=== PATIENT | male | born 1960 | race Caucasian/White ===

== ENCOUNTER 2018-07-14 13:13 | Outpatient (CLI) | payer OTHER, SELFPAY ==
[2018-07-14 14:44] LABS: Uric Acid 4.9 mg/dL (3.5-7.2)
== END 2018-07-14 13:33 ==
PROVIDERS: PCP Internal Medicine; Visit Provider Internal Medicine
DX: M10.9 Gout, unspecified (principal)
CPT/HCPCS: 84550

== ENCOUNTER 2018-08-12 14:26 | Outpatient (CLI) | payer OTHER, SELFPAY ==
[2018-08-12 15:00] LABS: Abs Immature Grans 0.01 k/cumm (0.0-0.09); Absolute Basophil Count 0.03 k/cumm (0.0-0.2); Absolute Eosinophil Count 0.01 k/cumm (0.0-0.7); Absolute Lymphocyte Count 1.44 k/cumm (1.2-3.4); Absolute Monocyte Count 0.94 k/cumm (0.11-0.7); Absolute Neutrophil Count 5.76 k/cumm (1.2-6.7); Basophils % 0.4; Eosinophils % 0.1; HCT 41.9 % (40.0-50.0); HGB 14.4 g/dL (13.5-17.5); Immature Grans % 0.1; Lymphocytes % 17.6; Mean Corp. HGB Concentration 34.4 g/dL (32.0-36.0); Mean Corpuscular Hemoglobin 35.1 pg (27.0-33.0); Mean Corpuscular Volume 102.2 fL (80-95); Mean Platelet Volume 9.7 fL (8.0-11.0); Monocytes % 11.5; Neutrophils % 70.3; Platelet Count 228 x1000/uL (130-400); RBC Distribution Width 13.3 % (11.8-14.1); White Blood Cell Count 8.19 k/cumm (4.4-10.8)
[2018-08-12 16:24] LABS: BUN 13 mg/dL (7-18); CREATININE 1.12 mg/dL (0.70-1.30); Calcium 9.8 mg/dL (8.5-10.1); Chloride 96 mmol/L (98-107); Cholesterol 256 mg/dL (50-200); Glucose 108 mg/dL (70-100); HDL Cholesterol 102 mg/dL (40-60); LDL CHOLESTEROL 132 mg/dL (<100); Potassium 4.5 mmol/L (3.5-5.1); Sodium 137 mmol/L (136-145); Triglyceride 73 mg/dL (30-150)
== END 2018-08-12 14:46 ==
PROVIDERS: PCP Internal Medicine; Visit Provider Internal Medicine
DX: I10 Essential (primary) hypertension (principal); M10.9 Gout, unspecified
CPT/HCPCS: 80048; 80061; 83721; 85025

== ENCOUNTER 2018-10-26 14:27 | Outpatient (CLI) | payer OTHER, SELFPAY ==
[2018-10-26 14:52] LABS: Abs Immature Grans 0.01 k/cumm (0.0-0.09); Absolute Basophil Count 0.04 k/cumm (0.0-0.2); Absolute Eosinophil Count 0.43 k/cumm (0.0-0.7); Absolute Lymphocyte Count 1.45 k/cumm (1.2-3.4); Absolute Monocyte Count 0.94 k/cumm (0.11-0.7); Absolute Neutrophil Count 4.35 k/cumm (1.2-6.7); Basophils % 0.6; HGB 14.6 g/dL (13.5-17.5); Immature Grans % 0.1; Lymphocytes % 20.1; Mean Corp. HGB Concentration 35.6 g/dL (32.0-36.0); Mean Corpuscular Hemoglobin 35.3 pg (27.0-33.0); Mean Platelet Volume 10.4 fL (8.0-11.0); Neutrophils % 60.2; Platelet Count 249 x1000/uL (130-400); RBC 4.14 m/cumm (4.50-6.00); RBC Distribution Width 12.6 % (11.8-14.1); White Blood Cell Count 7.22 k/cumm (4.4-10.8)
== END 2018-10-26 14:47 ==
PROVIDERS: PCP Internal Medicine; Visit Provider Internal Medicine Rheumatology
DX: M10.9 Gout, unspecified (principal)
CPT/HCPCS: 36415; 85025

== ENCOUNTER 2019-12-03 02:30 | Outpatient (CLI) | payer OTHER, SELFPAY ==
[2019-12-03 16:01] LABS: ALT 36 U/L (16-63); AST 49 U/L (15-37); Albumin 3.6 g/dL (3.4-5.0); Alkaline Phosphatase 81 U/L (46-116); Anion Gap 10.3 mmol/L (3-11); BUN 5 mg/dL (7-18); Bilirubin, Total 1.1 mg/dL (0.2-1.0); CO2 27.7 mmol/L (21.0-32.0); CREATININE 0.92 mg/dL (0.70-1.30); Calcium 9.5 mg/dL (8.5-10.1); Calculated LDL 75 mg/dL (<100); Chloride 102 mmol/L (98-107); Cholesterol 176 mg/dL (<200); Glucose 102 mg/dL (74-106); HDL Cholesterol 81 mg/dL (40-60); Potassium 4.2 mmol/L (3.5-5.1); Sodium 140 mmol/L (136-145); Total Protein 6.7 g/dL (6.4-8.2); Triglyceride 100 mg/dL (<150)
[2019-12-03 16:10] LABS: Uric Acid 4.2 mg/dL (3.5-7.2)
== END 2019-12-03 02:50 ==
PROVIDERS: PCP Internal Medicine; Visit Provider Internal Medicine
DX: E78.00 Pure hypercholesterolemia, unspecified (principal); K76.0 Fatty (change of) liver, not elsewhere classified; M1A.9XX0 Chronic gout, unspecified, without tophus (tophi); R73.01 Impaired fasting glucose; I10 Essential (primary) hypertension
CPT/HCPCS: 36415; 80053; 80061; 84550; 85025

== ENCOUNTER 2020-07-10 04:23 | Outpatient (CLI) | payer OTHER, SELFPAY ==
[2020-07-10 11:36] LABS: Abs Immature Grans 0.04 10^3/uL (0.0-0.06); Absolute Basophil Count 0.06 10^3/uL (0.0-0.2); Absolute Eosinophil Count 0.02 10^3/uL (0.0-0.7); Absolute Lymphocyte Count 1.33 10^3/uL (1.2-3.4); Absolute Monocyte Count 0.51 10^3/uL (0.1-0.8); Absolute Neutrophil Count 6.42 10^3/uL (1.2-6.7); Basophils % 0.7; Eosinophils % 0.2; HCT 44.3 % (40.0-50.0); HGB 15.6 g/dL (13.5-17.5); Immature Grans % 0.5; Lymphocytes % 15.9; MCH 39.9 pg (27.0-33.0); MCHC 35.2 % (32.0-36.0); MCV 113.3 fL (80-95); MPV 10.2 fL (8.0-11.0); Monocytes % 6.1; Neutrophils % 76.6; Nucleated RBC 0 %; Platelet Count 297 10^3/uL (130-400); RBC 3.91 10^6/uL (4.36-5.78); RDW 13.2 % (11.8-14.1); RDW-SD 55.2 fL; WBC 8.38 10^3/uL (4.4-10.8)
[2020-07-10 11:53] LABS: ALT 53 U/L (16-63); AST 87 U/L (15-37); CREATININE 0.8 mg/dL (0.70-1.30); Uric Acid 3.8 mg/dL (3.5-7.2)
[2020-07-10 12:12] LABS: Diff Comment RBC Morph Reviewed; Macrocytosis 2+
== END 2020-07-10 04:24 | disposition home or self-care (01) ==
LOC: LBO 04:24
PROVIDERS: PCP Internal Medicine; Visit Provider Internal Medicine Rheumatology
DX: M10.9 Gout, unspecified (principal)
CPT/HCPCS: 36415; 82565; 84450; 84460; 84550; 85025

== ENCOUNTER 2021-05-15 16:51 | Outpatient (REF) | payer OTHER, SELFPAY ==
[2021-05-17 13:20] LABS: COVID-19 RT-PCR UVMMC Result Negative (Negative)
== END 2021-05-15 16:52 | disposition home or self-care (01) ==
LOC: LBN 16:51
PROVIDERS: PCP Internal Medicine; Visit Provider Internal Medicine
DX: Z20.822 Contact with and (suspected) exposure to COVID-19 (principal); R05.8 Other specified cough; R50.9 Fever, unspecified
CPT/HCPCS: U0003

== ENCOUNTER 2021-08-22 03:09 | Outpatient (CLI) | payer OTHER, SELFPAY ==
[2021-08-22 09:14] LABS: HCT 42.8 % (40.0-50.0); HGB 14.9 g/dL (13.5-17.5); MCH 37.7 pg (27.0-33.0); MCHC 34.8 % (32.0-36.0); MCV 108.4 fL (80-95); MPV 10.9 fL (8.0-11.0); Platelet Count 167 10^3/uL (130-400); RBC 3.95 10^6/uL (4.36-5.78); RDW 13.5 % (11.8-14.1); RDW-SD 53.9 fL; WBC 6.42 10^3/uL (4.4-10.8)
[2021-08-22 09:38] LABS: ESR < 1 mm/hr (0-20)
[2021-08-22 09:58] LABS: ALT 56 U/L (16-63)
[2021-08-22 10:37] LABS: ALT 54 U/L (16-63); AST 127 U/L (15-37); Albumin 2.8 g/dL (3.4-5.0); Alkaline Phosphatase 141 U/L (46-116); BUN 6 mg/dL (7-18); Bilirubin, Total 1.5 mg/dL (0.2-1.0); CREATININE 0.7 mg/dL (0.70-1.30); Calcium 8.7 mg/dL (8.5-10.1); Calculated LDL 60 mg/dL (<100); Chloride 104 mmol/L (98-107); Cholesterol 159 mg/dL (<200); Glucose 86 mg/dL (74-106); HDL Cholesterol 83 mg/dL (40-60); Potassium 3.9 mmol/L (3.5-5.1); Sodium 144 mmol/L (136-145); TSH 1.28 uIU/mL (0.36-3.74); Triglyceride 81 mg/dL (<150); Vitamin B12 451 pg/mL (193-986)
== END 2021-08-22 03:10 | disposition home or self-care (01) ==
LOC: LBO 03:09
PROVIDERS: Internal Medicine Rheumatology; PCP Internal Medicine; Visit Provider Internal Medicine
DX: R74.01 Elevation of levels of liver transaminase levels (principal)
CPT/HCPCS: 36415; 80053; 80061; 85027; 85652; 82607; 84443; 84460

== ENCOUNTER → 2021-10-04 02:26 | Outpatient (CLI) | payer OTHER, SELFPAY ==
--- NOTE | 2021-10-04 12:14 | DI.RAD_ITS ---
Exam(s) XR FOOT LT COMPLETE EXAM: XR FOOT LT COMPLETE CLINICAL HISTORY: swelling, M79.89. TECHNIQUE: 2D digital imaging was performed of the left foot. Three images were obtained. AP, obli que and lateral views were obtained. COMPARISON: CR LEFT ANKLE COMPLETE from 11/13/2017 FINDINGS: BONES: No acute fracture is present. No bony destructive lesion is seen. JOINTS: No dislocation present. Mild hallux valgus deformity. There are mild degenerative changes of the foot particularly at the talonavicular joint. SOFT TISSUE: Dystrophic calcifications are seen in the soft tissues adjacent to the distal phalanx of the great toe. IMPRESSION: Mild degenerative changes of the left foot. No acute abnormality. DATA REPOSITORY: RADIATION DOSE DELIVERED:
--- NOTE | 2021-10-04 12:14 | DI.RAD_ITS ---
Exam(s) XR ANKLE LT COMPLETE EXAM: XR ANKLE LT COMPLETE CLINICAL HISTORY: foot and ankle swelling, M79.89 TECHNIQUE: 2D digital imaging was performed of the left ankle. Three images were obtained. AP, lat eral and oblique views were obtained. COMPARISON: CR LEFT ANKLE COMPLETE from 11/13/2017 FINDINGS: BONES: No acute fracture is present. No bony destructive lesion is seen. JOINTS:The ankle mortise is normally aligned. SOFT TISSUE: There is mild soft tissue swelling around the ankle. IMPRESSION: Mild soft tissue swelling around the ankle. DATA REPOSITORY: RADIATION DOSE DELIVERED:
== END ==
PROVIDERS: PCP Internal Medicine; Visit Provider Internal Medicine
DX: M25.572 Pain in left ankle and joints of left foot; M79.672 Pain in left foot; M79.89 Other specified soft tissue disorders; M20.12 Hallux valgus (acquired), left foot; M19.072 Primary osteoarthritis, left ankle and foot
CPT/HCPCS: 73610; 73630

== ENCOUNTER 2022-02-20 20:52 | Outpatient (REF) | payer OTHER, SELFPAY ==
[2022-02-20 21:13] LABS: Abs Immature Grans 0.03 10^3/uL (0.0-0.06); Absolute Basophil Count 0.06 10^3/uL (0.0-0.2); Absolute Eosinophil Count 0.04 10^3/uL (0.0-0.7); Absolute Lymphocyte Count 1.69 10^3/uL (1.2-3.4); Absolute Monocyte Count 1.17 10^3/uL (0.1-0.8); Absolute Neutrophil Count 5.67 10^3/uL (1.2-6.7); Basophils % 0.7; Eosinophils % 0.5; HCT 48.2 % (40.0-50.0); HGB 16.6 g/dL (13.5-17.5); Immature Grans % 0.3; Lymphocytes % 19.5; MCH 34.7 pg (27.0-33.0); MCHC 34.4 % (32.0-36.0); MCV 101 fL (80-95); MPV 11.5 fL (8.0-11.0); Monocytes % 13.5; Neutrophils % 65.5; Platelet Count 246 10^3/uL (130-400); RBC 4.79 10^6/uL (4.36-5.78); RDW 12.7 % (11.8-14.1); RDW-SD 47.8 fL; WBC 8.66 10^3/uL (4.4-10.8)
[2022-02-20 21:22] LABS: ALT 22 U/L (16-63); AST 53 U/L (15-37); Albumin 2.6 g/dL (3.4-5.0); Alkaline Phosphatase 158 U/L (46-116); Anion Gap 5.6 mmol/L (3-11); BUN 5 mg/dL (7-18); Bilirubin, Direct 0.7 mg/dL (0.0-0.2); Bilirubin, Total 2.1 mg/dL (0.2-1.0); CO2 32.4 mmol/L (21.0-32.0); CREATININE 0.9 mg/dL (0.70-1.30); Calcium 9.1 mg/dL (8.5-10.1); Chloride 95 mmol/L (98-107); Estimated GFR 97.17 (mL/min/1.73m2); Glucose 102 mg/dL (74-106); Potassium 3.8 mmol/L (3.5-5.1); Sodium 133 mmol/L (136-145); Total Protein 7.1 g/dL (6.4-8.2)
[2022-02-22 10:03] LABS: HBs Antibody, Qual Negative (See Note); HBs Antibody, Quant <3.1 mIU/mL (See Note); Hepatitis B Core Antibody Negative (Negative); Hepatitis B surface Ag Negative (Negative); Hepatitis C Ab w Rflx HCV PCR Negative (Negative)
== END 2022-02-20 20:53 | disposition home or self-care (01) ==
LOC: LBN 20:52
PROVIDERS: PCP Internal Medicine; Visit Provider Nurse Practitioner
DX: R18.8 Other ascites (principal); F10.10 Alcohol abuse, uncomplicated; R74.01 Elevation of levels of liver transaminase levels; R60.0 Localized edema; R79.89 Other specified abnormal findings of blood chemistry
CPT/HCPCS: 80053; 80076; 86704; 86706; 86803; 87340; 85025

== ENCOUNTER 2022-02-26 06:15 | Day surgery (SDC) | payer OTHER, SELFPAY ==
[2022-02-26 06:29] VITALS: BP 119/90; PULSE 86; RESP 17; TEMP 36.4; O2SAT 97
--- NOTE | 2022-02-26 06:50 | ANES.PREOP_ITS ---
General Info Date of Service Date Performed: 02/26/22 Height: 6 ft 0.25 in Weight: 82.3 kg Body Mass Index (BMI): 24.4 Surgical Procedure: Operation Date: 02/26/22 07:40 Proposed Procedure Side Surgeon p Wrist ECTR Right Herb Rosales MD Meds Allergies and Home Medications Allergies Allergy/AdvReac Type Severity Reaction Status Date / Time oxycodone HCl [From Roxicet] AdvReac waking Verified 02/26/22 06:40 dreams, nervousness Home Medication Medication Instructions Recorded prednisone 5 mg tablet 5 mg PO DAILY PRN 01/09/21 Current Visit Medications: Current Medications Generic Name Dose Route Start Last Admin Trade Name Freq PRN Reason Stop Dose Admin Ringer's Solution 1,000 mls @ 80 mls/hr 02/26/22 06:00 IV 03/27/22 23:59 INFUSION MARISELA Cefazolin Sodium/Dextrose 2 gm in 50 mls @ 100 mls/hr 02/26/22 06:00 Ancef Duplex IVPB 02/26/22 16:00 PREOP MARISELA IV Miscellaneous Supplies 1 each 02/26/22 06:00 Iv Access IV 03/27/22 23:59 DIRECTED MARISELA Sodium Chloride 0 ml 02/26/22 06:00 Normal Saline Flush 10 Ml Syr IV 03/27/22 23:59 PRN PRN Sodium Chloride 0 ml 02/26/22 06:00 Normal Saline 10 Ml Vial IJ 03/27/22 23:59 DIRECTED PRN Sterile Water 0 ml 02/26/22 06:00 Water,Injection,Sterile 10 Ml Vial IJ 03/27/22 23:59 DIRECTED PRN PFSH Active Problems Active Problems: Problem Status Onset Code Bilateral knee pain. 10/02/12 Gouty arthropathy 10/02/12 M10.00 Right hydrocele N43.3 Alcohol consumption heavy 05/03/14 Z78.9 Biliary colic 10/09/14 K80.50 Glaucoma suspect 05/03/14 H40.009 Inguinal hernia 05/03/14 K40.90 Seroma of genitourinary system after genitourinary system procedure 02/25/17 N99.842 Tinnitus of right ear 11/07/16 H93.11 Tubular adenoma of colon 05/03/14 D12.6 Umbilical hernia without obstruction or gangrene 05/03/14 K42.9 Impaired fasting glucose R73.01 Fatty liver K76.0 Macrocytosis without anemia D75.89 Chronic gout [id number] Trigeminal neuralgia of right side of face G50.0 Hypercholesterolemia E78.00 Ganglion, right wrist M67.431 Paresthesia of both feet R20.2 Peripheral neuropathy G62.9 Carpal tunnel syndrome on both sides G56.03 Ulnar neuropathy of left upper extremity G56.22 Normal blood pressure Alcoholic hepatitis without ascites ~08/2021 K70.10 Venous incompetence I87.2 Ascites R18.8 Elevated liver function tests R79.89 Medical History Medical History Essential hypertension (02/05/17) HTN (hypertension) ingrown toenail kidney infection Medical History Comments:: Per pt. states he quite drinking alcohol last week. Pt states he was told the old meds used for colonoscopy made him babble for 3 hours post op when he got home before he realized he was awake. Surgical History Surgical History Arthroplasty of knee (10/03/12) Laurie No replacement just knee scop Colonoscopy - MAC (10/31/17) Excision, Lesion (11/22/16) Extraction of cataract (02/10/16) Hydrocelectomy (02/13/17) Tobacco Smoking/Tobacco Use Status: Former Tobacco Use Alcohol Alcohol Intake: former Substance Use Substance use: Never Vital Signs and Lab Results Vital Signs Most Recent Vital Signs in EMR: Most Recent Vital Signs Temp Pulse Resp BP Pulse Ox 36.4 C L 86 17 119/90 97 02/26/22 06:29 02/26/22 06:29 02/26/22 06:29 02/26/22 06:29 02/26/22 06:29 Lab Results Blood Type / Crossmatch: No Data to Display Complete Blood Count: White Blood Count 8.66 10^3/uL (4.4-10.8) 02/20/22 15:45 Red Blood Count 4.79 10^6/uL (4.36-5.78) 02/20/22 15:45 Hemoglobin 16.6 g/dL (13.5-17.5) 02/20/22 15:45 Hematocrit 48.2 % (40.0-50.0) 02/20/22 15:45 Platelet Count 246 10^3/uL (130-400) 02/20/22 15:45 Complete Metabolic Panel: Sodium 133 mmol/L (136-145) L 02/20/22 15:45 Potassium 3.8 mmol/L (3.5-5.1) 02/20/22 15:45 Chloride 95 mmol/L (98-107) L 02/20/22 15:45 Carbon Dioxide 32.4 mmol/L (21.0-32.0) H 02/20/22 15:45 BUN 5 mg/dL (7-18) L 02/20/22 15:45 Creatinine 0.9 mg/dL (0.70-1.30) 02/20/22 15:45 Est GFR (CKD-EPI 2020) 97.17 (mL/min/1.73m2) 02/20/22 15:45 Calcium 9.1 mg/dL (8.5-10.1) 02/20/22 15:45 Albumin 2.6 g/dL (3.4-5.0) L 02/20/22 15:45 Glucose 102 mg/dL (74-106) 02/20/22 15:45 Liver Function Panel: Alanine Aminotransferase (ALT/SGPT) 22 U/L (16-63) 02/20/22 15: 45 Aspartate Amino Transf (AST/SGOT) 53 U/L (15-37) H 02/20/22 15: 45 Coagulation Panel: No Data to Display Cardiac Panel: No Data to Display Arterial Blood Gas: No Data to Display Venous Blood Gas: No Data to Display Pancreas Panel: No Data to Display Thyroid Panel: No Data to Display Infectious Disease: Hepatitis B Surface Antigen Negative (Negative) 02/20/22 15:45 Hepatitis C Antibody Negative (Negative) 02/20/22 15:45 Blood Cultures: No Data to Display Toxicology Panel: No Data to Display Anesthesia Assessment and Plan Anesthesia History Personal History: No History of Anesthesia Complications Family History: No Family History of Anesthesia Complications Exercise Tolerance Exercise Tolerance: Metabolic Equivalents>4 Pertinent Negatives Pertinent Negatives: No Symptoms of GERD, No Major Cardiovascular Symptoms or Complaints, No Major Pulmonary Symptoms or Complaints and No History of CVA/TIA Cardiac & Pulmonary Exam Cardiac Exam: Normal S1/S2 Heart Sounds Pulmonary Exam: Clear Bilateral Breath Sounds Implantable Cardiac Device Does patient have a Pacemaker or an ICD?: No Airway Exam Known Difficult Airway: No Mallampati Class: 2 Mouth Opening: Normal (> 3cm) Thyromental Distance: Greater than 3 cm Neck Range of Motion: Full ROM Neck Circumference: Normal Teeth Condition: Loose or Chipped (x2 left upper chipped/broken teeth) ASA Classification ASA Score: ASA 3 Emergency Case?: No NPO Status NPO Status: NPO Clears >2 hours, Solids >8 hours Anesthesia Plan Resuscitation Status: Full Code Anesthesia Technique: General Anesthesia Airway Planned: Natural Airway Monitors Used: Standard Monitors
[2022-02-26] MEDS: Lactated Ringers 1,000 ML 80 ML IV (07:01)
[2022-02-26 07:12] VITALS: BMI 24.4
--- NOTE | 2022-02-26 07:14 | HPE_ITS ---
Assessment and Plan Assessment and plan (1) Carpal tunnel syndrome on both sides: Status: Acute Assessment and plan: Genrao is a 61-year-old has bilateral carpal tunnel syndrome. He is here today for the right side. We will proceed with the left side in a few weeks. He has no medical issues precluding surgery today. I discussed the technical details of carpal tunnel release and that I perform an endoscopic release, but would make a larger, open, incision if necessary for visualization. I discussed the risks of the procedure to include, but not limited to, bleeding, infection, palmar pain, stiffness, damage to nerves, damage to vessels, damage to tendons, weakness, recurrence, and incomplete release. Given these risks, Genaro desires to proceed. History of Present Illness History of Present Illness Chief Complaint: Bilateral Carpal Tunnel Syndrome Narrative: Genaro is a 61-year-old who has known bilateral carpal tunnel syndrome. See the previous office note for complete detailed history. He is here today for his right carpal tunnel release to be followed by the left side in a few weeks. He denies any new symptoms. No chest pain or shortness of breath. No chronic cough or recent illness. Review of Systems All systems reviewed & are unremarkable except as noted in HPI and below PFSH All Active Problems Bilateral knee pain. (Active 10/02/12) Gouty arthropathy (Active 10/02/12) Right hydrocele (Acute) Alcohol consumption heavy (Acute 05/03/14) Biliary colic (Acute 10/09/14) Glaucoma suspect (Acute 05/03/14) Inguinal hernia (Acute 05/03/14) Seroma of genitourinary system after genitourinary system procedure (Acute 02/25/17) Tinnitus of right ear (Acute 11/07/16) Tubular adenoma of colon (Acute 05/03/14) tubulovillous Umbilical hernia without obstruction or gangrene (Acute 05/03/14) Impaired fasting glucose (Chronic) Fatty liver (Chronic) Macrocytosis without anemia (Chronic) Chronic gout (Acute) 02/19/19 multiple sites [facility] Trigeminal neuralgia of right side of face (Acute) Hypercholesterolemia (Acute) Ganglion, right wrist (Chronic) Paresthesia of both feet (Acute) Peripheral neuropathy (Acute) Carpal tunnel syndrome on both sides (Acute) Ulnar neuropathy of left upper extremity (Acute) Normal blood pressure (Acute) Alcoholic hepatitis without ascites (Acute ~08/2021) Venous incompetence (Acute) 10/31/21 Dr Nelson (LLE edema), f/u 6 weeks Ascites (Acute) Elevated liver function tests (Acute) Medical History Essential hypertension (02/05/17) HTN (hypertension) ingrown toenail kidney infection Surgical History Arthroplasty of knee (10/03/12) Laurie No replacement just knee scop Colonoscopy - MAC (10/31/17) Excision, Lesion (11/22/16) Extraction of cataract (02/10/16) Hydrocelectomy (02/13/17) Family History Mother Essential hypertension Arthritis Hyperlipidemia Father Alzheimer disease Sister Personal history of malignant neoplasm lung cancer Social History Smoking/Tobacco Use Status: Former Tobacco Use Quit Date: 05/12/99 Smoking risk assessment performed?: Yes Alcohol Intake: former Drug use: Never Household members: spouse Housing: house Communication Needs: Corrective Lenses Current gender identity: male What is your relationship status?: Panel score (0-1 are the most socially isolated patients): 1 Seatbelt use: always Drive intox or ride w/intox 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 Working smoke detector in home: Yes Carbon monox detector in home: Yes Do you feel safe at home: Yes Do you feel safe in your relationship?: Yes Meds Allergies and Home Medications Allergies Allergy/AdvReac Type Severity Reaction Status Date / Time oxycodone HCl [From Roxicet] AdvReac waking Verified 02/26/22 06:40 dreams, nervousness Home Medications Medication Instructions Recorded Confirmed Type prednisone 5 mg tablet 5 mg PO DAILY PRN 01/09/21 02/26/22 History Exam Resp Effort & Inspection: normal respiratory effort Auscultation: clear to auscultation bilaterally Cardio Rate: regular rate Rhythm: regular rhythm Results Last Vital Signs Temp 36.4 C L 02/26/22 06:29 Pulse 86 02/26/22 06:29 Resp 17 02/26/22 06:29 BP 119/90 02/26/22 06:29 Pulse Ox 97 02/26/22 06:29
--- NOTE | 2022-02-26 07:16 | W.PM.DSUDISC ---
Discharge Plan Disposition Patient Disposition: HOME Condition: Good Discharge Details Reason For Visit: Right carpal tunnel syndrome Attending Provider: Herb Rosales Primary Care Provider: Mercy Kim Home Meds and New Rx's Prescriptions: New acetaminophen 500 mg tablet 500 mg PO Q6H PRN (Reason: pain) Qty: 60 2RF ibuprofen 600 mg tablet 600 mg PO TID PRN (Reason: pain) Qty: 60 0RF Continued prednisone 5 mg tablet 5 mg PO DAILY PRN Label Comments: Uses with gout epsisode Rx Instructions: 02/19/19 [facility]. Take for Gouty flares 20 mg for 3 days, 15 mg for 3 days, 10 mg for 3 days, then 5 mg daily Discharge Instructions Stand Alone Forms: Bobby Sinclair Tunnel Release Referrals: Herb Rosales MD [ [facility] STAFF PHYSICIAN] - Activity:: Elevate Remove Dressings/Wound Care:: 72 hours Shower/Bathe:: 72 hours Diet:: As Tolerated Discharge Orders Discharge Orders: Discharge Order (Routine); Ordered 02/26/22 Ordered By: Tika Ramirez DS: Diagnosis Discharge Diagnosis (1) Carpal tunnel syndrome on both sides: Status: Acute
[2022-02-26] MEDS: ceFAZolin 2 GM/50 ML BAG IVPB (07:34)
[2022-02-26 07:57] VITALS: BP 99/71; PULSE 78; RESP 16; TEMP 36.3; O2SAT 94
[2022-02-26 08:18] VITALS: BP 110/82; PULSE 74; RESP 18; TEMP 36.5; O2SAT 96
--- NOTE | 2022-02-26 09:06 | W.PM.OP ---
Date of service: 02/26/22 Time of Service: 07:45 Operative Note Operative Note DATE OF PROCEDURE: 02/26/22 PRE-OP DIAGNOSIS: Right Carpal Tunnel Syndrome POST-OP DIAGNOSIS: same PROCEDURE: Right Endoscopic Carpal Tunnel Release SURGEON: Herb Rosales ANESTHESIA TYPE: General:No Airway Refer to Anesthesia Record ESTIMATED BLOOD LOSS: 0 PATHOLOGY: none sent TOURNIQUET TIME: 5 COMPLICATIONS: None Patient was transported to: same day Patient's condition: stable Indications: I have seen Genaro in clinic for symptoms of carpal tunnel syndrome. The numbness, tingling, and pain limited function. Clinical exam findings with nerve conduction tests confirmed the diagnosis of carpal tunnel syndrome. Nonoperative measures such as bracing, time, activity modifications had been tried but disability and pain persisted. I discussed carpal tunnel release with the patient. I reviewed the risks of the procedure to include, but not limited to, bleeding, infection, pain, stiffness, incomplete release, damage to nerves or vessels, persistent numbness, recurrence. Despite these risks, the patient elected to proceed. Findings: There was tightened carpal tunnel with notable fluid. This was dilated and released successfully with the endoscopic with increased space within the tunnel. The antebrachial fascia was released proximally freeing the median nerve at the wrist. Procedure Description: Genaro was greeted in the preoperative holding area where the correct side was identified and marked. The consent was reviewed with the patient and signed. The history and physical was updated. All questions were answered. He was taken back to the operating room. The patient was placed into the supine position on the operating room table with the right arm on an arm board. A nonsterile tourniquet was placed high onto the arm. All bony prominences were well padded. Prophylactic antibiotics in the form of Cefazolin were administered. The right arm was then prepped with Chloraprep and draped in a standard fashion with stockinette and extremity drape. A timeout to confirm correct identity, side and site, procedure, allergies, anesthesia, and medical concerns was performed. The surgical site was marked in the volar wrist creases in line with the radial border of the fourth ray. This area was anesthetized with approximately 6cc of 1% Lidocaine. The limb was then exsanguinated with an Esmarch. The skin was incised with a 15 blade, approximately 1cm. The skin only was cut and the deeper tissue was dissected bluntly with a tenotomy scissor, avoiding passing nerve and venous structures. The fascia was penetrated and opened bluntly. A two-prong skin hook was placed under this proximal fascial edge. A series of hamate finders were used to identify and dilate the carpal tunnel. Synovial elevator was used to free synovial attachments to the underside of the transverse carpal ligament. My thumb was kept in the palm to sruthi the distal extent of the carpal tunnel and correctly position the hand. The Microaire endoscope was inserted without difficulty and without resistance. Excellent visualization showed horizontally running fibers of the transverse carpal ligament (TCL). The distal extent of the TCL was visualized and the end of the scope palpated with the thumb. The blade was elevated and withdrawn from distal to proximal. The TCL was split into two flaps. The endoscope was reinserted to confirm complete release and any remnant ligament was incised. The scope was withdrawn and the proximal aspect of the carpal tunnel was grossly inspected and appeared release with the median nerve visible. The antebrachial fascia at the level of the wrist was then freed from the overlying skin and then the underlying median nerve with blunt dissection. This was transected longitudinally for about 3cm proximal to the wrist incision. The wound was then irrigated with easy flow of irrigant distally and proximally. The incision was closed with a single 4-0 Nylon suture. The wound was dressed with Xeroform, Gauze, Kerlix and Mike. The tourniquet was deflated with the initial dressing and held with some pressure. Blood flow returned easily to all digits with capillary refill less than 2 seconds. The patient tolerated the procedure well and was returned to the Same Day Surgery area in a stable condition suffering no known complication.
--- NOTE | 2022-02-26 10:01 | W.ANESPOSTOP ---
Postoperative Evaluation Date, Time and Location Date Performed: 02/26/22 Time Performed: 08:25 Patient Location: Day Surgery Unit Vital Signs Most Recent Imported Vital Signs: Most Recent Vital Signs Temp Pulse Resp BP Pulse Ox 36.5 C 74 18 110/82 96 02/26/22 08:18 02/26/22 08:18 02/26/22 08:18 02/26/22 08:18 02/26/22 08:18 Pain Score Most Recent Pain Score: Most Recent Pain Score Pain Level 0 02/26/22 07:57 Assessment Mental Status: Awake (Alert & Oriented to Patient Baseline) Airway and Respiratory Function: Patent airway with normal (patient baseline) respiratory exam Cardiovascular Function: Hemodynamically Stable Hydration Status: Adequately Hydrated Nausea & Vomiting: No Nausea or Vomiting Pain: Pt. Denies Any Pain Peripheral Nerve Block: Patient did not receive a nerve block
== END 2022-02-26 08:47 | disposition home or self-care (01) ==
PROVIDERS: PCP Internal Medicine; Visit Provider Student in an Organized Health Care Education/Training Program
PROC: 01N54ZZ Release Median Nerve, Percutaneous Endoscopic Approach (ICD-10-PCS; CPT 29848; principal; 2022-02-26 07:30)
DX: G56.01 Carpal tunnel syndrome, right upper limb (principal); I10 Essential (primary) hypertension
CPT/HCPCS: 29848; J0690; J1100; J2405; J2704

== ENCOUNTER 2022-03-05 06:14 | Day surgery (SDC) | payer OTHER, SELFPAY ==
[2022-03-05 06:34] VITALS: BP 121/86; PULSE 75; RESP 16; TEMP 36.4; O2SAT 98
--- NOTE | 2022-03-05 06:48 | ANES.PREOP_ITS ---
General Info Date of Service Date Performed: 03/05/22 Height: 6 ft 0.25 in Weight: 78.2 kg Body Mass Index (BMI): 23.2 Surgical Procedure: Operation Date: 03/05/22 07:40 Proposed Procedure Side Surgeon p Wrist ECTR Left Herb Rosales MD Meds Allergies and Home Medications Allergies Allergy/AdvReac Type Severity Reaction Status Date / Time oxycodone HCl [From Roxicet] AdvReac waking Verified 03/05/22 06:32 dreams, nervousness Home Medication Medication Instructions Recorded prednisone 5 mg tablet 5 mg PO DAILY PRN 01/09/21 acetaminophen 500 mg tablet 500 mg PO Q6H PRN pain #60 tabs 02/26/22 hydrocodone 5 mg-acetaminophen 325 1 tab PO Q8H PRN pain #3 tabs 02/26/22 mg tablet ibuprofen 600 mg tablet 600 mg PO TID PRN pain #60 tabs 02/26/22 furosemide 20 mg tablet 20 mg PO DAILY 03/04/22 spironolactone 50 mg tablet 50 mg PO DAILY 03/04/22 Current Visit Medications: Current Medications Generic Name Dose Route Start Last Admin Trade Name Freq PRN Reason Stop Dose Admin Ringer's Solution 1,000 mls @ 80 mls/hr 03/05/22 06:00 IV 04/03/22 23:59 INFUSION MARISELA Cefazolin Sodium/Dextrose 2 gm in 50 mls @ 100 mls/hr 03/05/22 06:00 Ancef Duplex IVPB 03/05/22 16:00 PREOP MARISELA IV Miscellaneous Supplies 1 each 03/05/22 06:00 Iv Access IV 04/03/22 23:59 DIRECTED MARISELA Sodium Chloride 0 ml 03/05/22 06:00 Normal Saline Flush 10 Ml Syr IV 04/03/22 23:59 PRN PRN Sodium Chloride 0 ml 03/05/22 06:00 Normal Saline 10 Ml Vial IJ 04/03/22 23:59 DIRECTED PRN Sterile Water 0 ml 03/05/22 06:00 Water,Injection,Sterile 10 Ml Vial IJ 04/03/22 23:59 DIRECTED PRN PFSH Active Problems Active Problems: Problem Status Onset Code Bilateral knee pain. 10/02/12 Gouty arthropathy 10/02/12 M10.00 Right hydrocele N43.3 Alcohol consumption heavy 05/03/14 Z78.9 Biliary colic 10/09/14 K80.50 Glaucoma suspect 05/03/14 H40.009 Inguinal hernia 05/03/14 K40.90 Seroma of genitourinary system after genitourinary system procedure 02/25/17 N99.842 Tinnitus of right ear 11/07/16 H93.11 Tubular adenoma of colon 05/03/14 D12.6 Umbilical hernia without obstruction or gangrene 05/03/14 K42.9 Impaired fasting glucose R73.01 Fatty liver K76.0 Macrocytosis without anemia D75.89 Chronic gout [id number] Trigeminal neuralgia of right side of face G50.0 Hypercholesterolemia E78.00 Ganglion, right wrist M67.431 Paresthesia of both feet R20.2 Peripheral neuropathy G62.9 Carpal tunnel syndrome on both sides G56.03 Ulnar neuropathy of left upper extremity G56.22 Normal blood pressure Alcoholic hepatitis without ascites ~08/2021 K70.10 Venous incompetence I87.2 Ascites R18.8 Elevated liver function tests R79.89 Medical History Medical History Essential hypertension (02/05/17) HTN (hypertension) ingrown toenail kidney infection Medical History Comments:: PREOP:Per pt. states he quite drinking alcohol last week. Pt states he was told the old meds used for colonoscopy made him babble for 3 hours post op when he got home before he realized he was awake. Surgical History Surgical History Arthroplasty of knee (10/03/12) Laurie No replacement just knee scop Colonoscopy - MAC (10/31/17) Excision, Lesion (11/22/16) Extraction of cataract (02/10/16) Hydrocelectomy (02/13/17) Tobacco Smoking/Tobacco Use Status: Former Tobacco Use Alcohol Alcohol Intake: former Substance Use Substance use: Never Substance use type: does not use Vital Signs and Lab Results Vital Signs Most Recent Vital Signs in EMR: Most Recent Vital Signs Temp Pulse Resp BP Pulse Ox 36.4 C L 75 16 121/86 98 03/05/22 06:34 03/05/22 06:34 03/05/22 06:34 03/05/22 06:34 03/05/22 06:34 Lab Results Blood Type / Crossmatch: No Data to Display Complete Blood Count: White Blood Count 8.66 10^3/uL (4.4-10.8) 02/20/22 15:45 Red Blood Count 4.79 10^6/uL (4.36-5.78) 02/20/22 15:45 Hemoglobin 16.6 g/dL (13.5-17.5) 02/20/22 15:45 Hematocrit 48.2 % (40.0-50.0) 02/20/22 15:45 Platelet Count 246 10^3/uL (130-400) 02/20/22 15:45 Complete Metabolic Panel: Sodium 133 mmol/L (136-145) L 02/20/22 15:45 Potassium 3.8 mmol/L (3.5-5.1) 02/20/22 15:45 Chloride 95 mmol/L (98-107) L 02/20/22 15:45 Carbon Dioxide 32.4 mmol/L (21.0-32.0) H 02/20/22 15:45 BUN 5 mg/dL (7-18) L 02/20/22 15:45 Creatinine 0.9 mg/dL (0.70-1.30) 02/20/22 15:45 Est GFR (CKD-EPI 2020) 97.17 (mL/min/1.73m2) 02/20/22 15:45 Calcium 9.1 mg/dL (8.5-10.1) 02/20/22 15:45 Albumin 2.6 g/dL (3.4-5.0) L 02/20/22 15:45 Glucose 102 mg/dL (74-106) 02/20/22 15:45 Liver Function Panel: Alanine Aminotransferase (ALT/SGPT) 22 U/L (16-63) 02/20/22 15: 45 Aspartate Amino Transf (AST/SGOT) 53 U/L (15-37) H 02/20/22 15: 45 Coagulation Panel: No Data to Display Cardiac Panel: No Data to Display Arterial Blood Gas: No Data to Display Venous Blood Gas: No Data to Display Pancreas Panel: No Data to Display Thyroid Panel: No Data to Display Infectious Disease: Hepatitis B Surface Antigen Negative (Negative) 02/20/22 15:45 Hepatitis C Antibody Negative (Negative) 02/20/22 15:45 Blood Cultures: No Data to Display Toxicology Panel: No Data to Display Anesthesia Assessment and Plan Anesthesia History Personal History: No History of Anesthesia Complications Family History: No Family History of Anesthesia Complications Exercise Tolerance Exercise Tolerance: Metabolic Equivalents>4 Pertinent Negatives Pertinent Negatives: No Symptoms of GERD, No Major Cardiovascular Symptoms or Complaints, No Major Pulmonary Symptoms or Complaints and No History of CVA/TIA Cardiac & Pulmonary Exam Cardiac Exam: Normal S1/S2 Heart Sounds Pulmonary Exam: Clear Bilateral Breath Sounds Implantable Cardiac Device Does patient have a Pacemaker or an ICD?: No Airway Exam Known Difficult Airway: No Mallampati Class: 2 Mouth Opening: Normal (> 3cm) Thyromental Distance: Greater than 3 cm Neck Range of Motion: Full ROM Neck Circumference: Normal Teeth Condition: Loose or Chipped (x2 left upper chipped/broken teeth) ASA Classification ASA Score: ASA 3 Emergency Case?: No NPO Status NPO Status: NPO Clears >2 hours, Solids >8 hours Anesthesia Plan Resuscitation Status: Full Code Anesthesia Technique: General Anesthesia (natural airway ) Airway Planned: Natural Airway Monitors Used: Standard Monitors
[2022-03-05] MEDS: Lactated Ringers 1,000 ML 80 ML IV (06:50)
[2022-03-05 07:10] VITALS: BMI 23.2
[2022-03-05] MEDS: ceFAZolin 2 GM/50 ML BAG IVPB (07:20)
--- NOTE | 2022-03-05 07:21 | W.PM.DSUDISC ---
Date of service: 03/05/22 Time of Service: 07:21 Discharge Plan Disposition Patient Disposition: HOME Condition: Good Discharge Details Reason For Visit: L ECTR Attending Provider: Herb Rosales Primary Care Provider: Mercy Kim Home Meds and New Rx's Prescriptions: Continued hydrocodone-acetaminophen 5-325 mg tablet 1 tab PO Q8H MDD 15 mg PRN (Reason: pain) Qty: 3 0RF Rx Instructions: Take one tablet up to every 8 hours as needed for severe pain prednisone 5 mg tablet 5 mg PO DAILY PRN Label Comments: Uses with gout epsisode Rx Instructions: 02/19/19 [facility]. Take for Gouty flares 20 mg for 3 days, 15 mg for 3 days, 10 mg for 3 days, then 5 mg daily furosemide 20 mg Tablet 20 mg PO DAILY spironolactone 50 mg Tablet 50 mg PO DAILY acetaminophen 500 mg tablet 500 mg PO Q6H PRN (Reason: pain) Qty: 60 2RF ibuprofen 600 mg tablet 600 mg PO TID PRN (Reason: pain) Qty: 60 0RF Discharge Instructions Stand Alone Forms: Bobby Sinclair Tunnel Release Referrals: Herb Rosales MD [ [facility] STAFF PHYSICIAN] - Activity:: Activity as Tolerated Remove Dressings/Wound Care:: 48 hours Shower/Bathe:: 48 hours Diet:: As Tolerated Discharge Orders Discharge Orders: Discharge Order (Routine); Ordered 03/05/22 Ordered By: Deejay Jj DS: Diagnosis Discharge Diagnosis (1) Carpal tunnel syndrome on both sides: Status: Acute
[2022-03-05] MEDS: Lidocaine 1% Pres-Free W/EPI 1/200,000 30 ML VIAL IJ (07:27)
[2022-03-05 07:45] VITALS: BP 97/79; PULSE 67; RESP 16; TEMP 36.5; O2SAT 98
[2022-03-05 08:06] VITALS: BP 99/81; PULSE 68; RESP 16; TEMP 36.4; O2SAT 95
--- NOTE | 2022-03-05 08:09 | W.ANESPOSTOP ---
Postoperative Evaluation Date, Time and Location Date Performed: 03/05/22 Time Performed: 08:10 Patient Location: Day Surgery Unit Vital Signs Most Recent Imported Vital Signs: Most Recent Vital Signs Temp Pulse Resp BP Pulse Ox 36.5 C 67 16 97/79 L 98 03/05/22 07:45 03/05/22 07:45 03/05/22 07:45 03/05/22 07:45 03/05/22 07:45 Pain Score Most Recent Pain Score: Most Recent Pain Score Pain Level 0 03/05/22 07:45 Assessment Mental Status: Awake (Alert & Oriented to Patient Baseline) Airway and Respiratory Function: Patent airway with normal (patient baseline) respiratory exam Cardiovascular Function: Hemodynamically Stable Hydration Status: Adequately Hydrated Nausea & Vomiting: No Nausea or Vomiting Pain: Pt. Denies Any Pain Peripheral Nerve Block: Patient did not receive a nerve block
[2022-03-05 08:15] VITALS: BP 94/76; PULSE 70; O2SAT 98
[2022-03-05 08:25] VITALS: BP 96/77; PULSE 73; O2SAT 99
--- NOTE | 2022-03-05 09:13 | W.PM.OP ---
Date of service: 03/05/22 Time of Service: 07:40 Operative Note Operative Note DATE OF PROCEDURE: 03/05/22 PRE-OP DIAGNOSIS: Left Carpal Tunnel Syndrome POST-OP DIAGNOSIS: same PROCEDURE: Left Endoscopic Carpal Tunnel Release SURGEON: Herb Rosales ANESTHESIA TYPE: General:No Airway Refer to Anesthesia Record ESTIMATED BLOOD LOSS: 0 PATHOLOGY: none sent TOURNIQUET TIME: 5 COMPLICATIONS: None Patient was transported to: same day Patient's condition: stable Indications: I have seen Genaro in clinic for symptoms of carpal tunnel syndrome. The numbness, tingling, and pain limited function. Clinical exam findings with nerve conduction tests confirmed the diagnosis of carpal tunnel syndrome. He had a previous carpal tunnel lease in the right side last week and is doing well from that. Nonoperative measures such as bracing, time, activity modifications had been tried but disability and pain persisted. I discussed carpal tunnel release with the patient. I reviewed the risks of the procedure to include, but not limited to, bleeding, infection, pain, stiffness, incomplete release, damage to nerves or vessels, persistent numbness, recurrence. Despite these risks, the patient elected to proceed. Findings: There was tightened carpal tunnel. This was dilated and released successfully with the endoscopic with increased space within the tunnel. The antebrachial fascia was released proximally freeing the median nerve at the wrist. Procedure Description: Genaro was greeted in the preoperative holding area where the correct side was identified and marked. The consent was reviewed with the patient and signed. The history and physical was updated. All questions were answered. Genaro was taken back to the operating room. The patient was placed into the supine position on the operating room table with the left arm on an arm board. A nonsterile tourniquet was placed high onto the arm. All bony prominences were well padded. Prophylactic antibiotics in the form of Cefazolin were administered. The left arm was then prepped with Chloraprep and draped in a standard fashion with stockinette and extremity drape. A timeout to confirm correct identity, side and site, procedure, allergies, anesthesia, and medical concerns was performed. The surgical site was marked in the volar wrist creases in line with the radial border of the fourth ray. This area was anesthetized with approximately 6cc of 1% Lidocaine. The limb was then exsanguinated with an Esmarch. The skin was incised with a 15 blade, approximately 1cm. The skin only was cut and the deeper tissue was dissected bluntly with a tenotomy scissor, avoiding passing nerve and venous structures. The fascia was penetrated and opened bluntly. A two-prong skin hook was placed under this proximal fascial edge. A series of hamate finders were used to identify and dilate the carpal tunnel. Synovial elevator was used to free synovial attachments to the underside of the transverse carpal ligament. My thumb was kept in the palm to sruthi the distal extent of the carpal tunnel and correctly position the hand. The [employer]aire endoscope was inserted without difficulty and without resistance. Excellent visualization showed horizontally running fibers of the transverse carpal ligament (TCL). The distal extent of the TCL was visualized and the end of the scope palpated with the thumb. The blade was elevated and withdrawn from distal to proximal. The TCL was split into two flaps. The endoscope was reinserted to confirm complete release and any remnant ligament was incised. The scope was withdrawn and the proximal aspect of the carpal tunnel was grossly inspected and appeared release with the median nerve visible. The antebrachial fascia at the level of the wrist was then freed from the overlying skin and then the underlying median nerve with blunt dissection. This was transected longitudinally for about 3cm proximal to the wrist incision. The wound was then irrigated with easy flow of irrigant distally and proximally. The incision was closed with a single 4-0 Nylon suture. The wound was dressed with Xeroform, Gauze, Kerlix and Mike. The tourniquet was deflated with the initial dressing and held with some pressure. Blood flow returned easily to all digits with capillary refill less than 2 seconds. The patient tolerated the procedure well and was returned to the Same Day Surgery area in a stable condition suffering no known complication.
== END 2022-03-05 08:33 | disposition home or self-care (01) ==
PROVIDERS: PCP Internal Medicine; Visit Provider Student in an Organized Health Care Education/Training Program
PROC: 01N54ZZ Release Median Nerve, Percutaneous Endoscopic Approach (ICD-10-PCS; CPT 29848; principal; 2022-03-05 07:30)
DX: G56.02 Carpal tunnel syndrome, left upper limb (principal); I10 Essential (primary) hypertension
CPT/HCPCS: 29848; J0690; J1100; J2405; J2704

== ENCOUNTER 2022-03-12 03:43 | Outpatient (CLI) | payer OTHER, SELFPAY ==
[2022-03-12 15:47] LABS: ALT 25 U/L (16-63); AST 35 U/L (15-37); Albumin 2.3 g/dL (3.4-5.0); Alkaline Phosphatase 141 U/L (46-116); Anion Gap 4.9 mmol/L (3-11); BUN 7 mg/dL (7-18); Bilirubin, Total 1.5 mg/dL (0.2-1.0); CO2 30.1 mmol/L (21.0-32.0); CREATININE 0.9 mg/dL (0.70-1.30); Chloride 100 mmol/L (98-107); Estimated GFR 97.17 (mL/min/1.73m2); Glucose 100 mg/dL (74-106); Potassium 4.5 mmol/L (3.5-5.1); Sodium 135 mmol/L (136-145); Total Protein 6.2 g/dL (6.4-8.2)
== END 2022-03-12 03:44 | disposition home or self-care (01) ==
LOC: LBO 03:45
PROVIDERS: PCP Nurse Practitioner; Visit Provider Nurse Practitioner Adult Health
DX: K74.60 Unspecified cirrhosis of liver (principal)
CPT/HCPCS: 36415; 80053